=== PATIENT | female | born 1965 | race African-American/Black ===

== ENCOUNTER 2020-05-27 10:38 | Emergency (ER) | payer OTHER ==
[~2020-05-27] VITALS: Ht 172.7 cm; Wt 82.0 kg
[2020-05-27] MEDS ORDERED: ONDANSETRON HCL 4MG/2ML INJ IV STA (10:59)
[2020-05-27] MEDS ORDERED: MORPHINE SULFATE 4 MG/ML CPJ (NOT FOR IM USE) IV STA (10:59)
[2020-05-27] MEDS ORDERED: SODIUM CHLORIDE 0.9% 1,000 ML IV ONE (11:00)
[2020-05-27 11:25] LABS: BASOPHILS % 0.4 % (0.0-2.0); EOSINOPHILS % 0.1 % (0.0-5.0); HEMOGLOBIN. 14.6 g/dL (12.0-16.0); LYMPHOCYTES % 12.2 % (20.0-50.0); MEAN CORPUSCULAR HEMOGLOBIN 29.4 pg (28.0-32.0); MEAN CORPUSCULAR VOLUME 88.8 fL (81.0-99.0); MEAN PLATELET VOLUME 8.7 fl (7.4-10.4); MONOCYTES % 2.1 % (2.0-8.0); NEUTROPHILS % 85.2 % (40.0-76.0); PLATELET 363 x1000/uL (130-400); RED BLOOD CELL COUNT 4.95 mill/uL (4.2-5.4)
[2020-05-27 11:35] LABS: CHLORIDE 104 mEq/L (98-107)
[2020-05-27] MEDS ORDERED: POTASSIUM CHLORIDE 20MEQ TABLET SR PO ONE (11:45)
[2020-05-27] MEDS ORDERED: KETOROLAC 15MG/ML VIAL IV ONE (11:45)
[2020-05-27] MEDS ORDERED: MORPHINE SULFATE 4 MG/ML CPJ (NOT FOR IM USE) IV ONE (12:45)
[2020-05-27] MEDS ORDERED: HALOPERIDOL LACTATE 5MG/ML VIAL IM ONE (13:00)
[2020-05-27 14:18] LABS: CLARITY URINE CLOUDY (CLEAR); COLOR URINE YELLOW (YELLOW); KETONES URINE 1+ (NEGATIVE); LEUKOCYTE ESTERASE URINE TRACE (NEGATIVE); NITRITE URINE NEGATIVE (NEGATIVE); OCCULT BLOOD URINE NEGATIVE (NEGATIVE); PH URINE 8.5 (4.5-8.0); PROTEIN URINE NEGATIVE (NEGATIVE); SPECIFIC GRAVITY URINE 1.017 (1.005-1.030); UROBILINOGEN URINE 0.2 E.U./dL (0.2-1.0)
[2020-05-27 15:07] VITALS: BP 121/72
[2020-05-27 15:26] LABS: *AMPHETAMINES SCREEN URINE NEGATIVE (NEGATIVE)
[2020-05-27 15:27] LABS: *BARBITURATES SCREEN URINE NEGATIVE (NEGATIVE); *BENZODIAZEPINES SCREEN URINE NEGATIVE (NEGATIVE); *COCAINE SCREEN URINE NEGATIVE (NEGATIVE); METHADONE URINE SCREEN NEGATIVE (NEGATIVE); OPIATES URINE SCREEN PRESUMTIVE POSITIVE (NEGATIVE); PHENCYCLIDINE URINE SCREEN NEGATIVE (NEGATIVE)
[2020-05-27 15:28] LABS: CANNABINOID URINE SCREEN PRESUMTIVE POSITIVE (NEGATIVE)
== END 2020-05-27 15:33 | disposition short-term general hospital (02) ==
LOC: ER 10:55 → CANBEDREQ 15:46
DX: K85.90 Acute pancreatitis without necrosis or infection, unspecified (principal); E87.6 Hypokalemia; R94.31 Abnormal electrocardiogram [ECG] [EKG]
CPT/HCPCS: 36415; 76705; 80053; 80305; 81003; 83690; 85025; 93005; 96372; 96374; 96375; 96376; 99285; J1630; J1885; J2270; J2405; J7030

== ENCOUNTER 2021-01-08 17:57 | Emergency (ER) | payer OTHER ==
[~2021-01-08] VITALS: Ht 172.7 cm; Wt 90.0 kg
[2021-01-08] MEDS ORDERED: ONDANSETRON HCL 4MG/2ML INJ IV STA (18:07)
[2021-01-08] MEDS ORDERED: MORPHINE SULFATE 4 MG/ML CPJ (NOT FOR IM USE) IV STA (18:07)
[2021-01-08] MEDS ORDERED: SODIUM CHLORIDE 0.9% 1,000 ML IV ONE (18:15)
[2021-01-08] MEDS ORDERED: LORAZEPAM 2MG/ML CPJ IV ONE (18:15)
[2021-01-08] MEDS ORDERED: HALOPERIDOL LACTATE 5MG/ML VIAL IM ONE (18:30)
[2021-01-08 18:37] LABS: BASOPHILS % 0.2 % (0.0-2.0); EOSINOPHILS % 0.4 % (0.0-5.0); HEMATOCRIT. 39.4 % (36.0-48.0); HEMOGLOBIN. 13.7 g/dL (12.0-16.0); LYMPHOCYTES % 22.9 % (20.0-50.0); MEAN CORPUSCULAR HEMOGLOBIN 29.9 pg (28.0-32.0); MEAN CORPUSCULAR VOLUME 85.8 fL (81.0-99.0); MEAN PLATELET VOLUME 8.5 fl (7.4-10.4); MONOCYTES % 4.6 % (2.0-8.0); NEUTROPHILS % 71.9 % (40.0-76.0); PLATELET 374 x1000/uL (130-400); RED BLOOD CELL COUNT 4.59 mill/uL (4.2-5.4); RED CELL DISTRIBUTION WIDTH 13.9 % (11.6-14.6)
[2021-01-08 18:45] LABS: CHLORIDE 108 mEq/L (98-107)
[2021-01-08 18:47] LABS: INR 1.1; PROTHROMBIN TIME 11.3 sec (9.6-11.0)
[2021-01-08 18:49] LABS: ETHANOL BLOOD < 10 mg/dL
[2021-01-08 18:59] LABS: HCG SCREEN NEGATIVE
[2021-01-08] MEDS ORDERED: SODIUM CHL 0.9% + KCL 20MEQ/L 1,000 ML IV SCH (19:30)
[2021-01-08] MEDS ORDERED: FAMO40TA70 MT (19:57)
[2021-01-08] MEDS ORDERED: TRAM50TA3 MT (19:57)
[2021-01-08] MEDS ORDERED: ONDA4TAB5 MT (19:57)
[2021-01-08] MEDS ORDERED: IOHEXOL-300 100 ML BOTTLE ONE (20:59)
[2021-01-08 21:35] VITALS: BP 166/92
== END 2021-01-08 21:50 | disposition home or self-care (01) ==
LOC: ER 17:57
DX: R10.13 Epigastric pain (principal); F12.90 Cannabis use, unspecified, uncomplicated
CPT/HCPCS: 36415; 74177; 76705; 80053; 80320; 83690; 84703; 85025; 85610; 93005; 96361; 96374; 96375; 99285; J2060; J2270; J2405; J3480; J7030; Q9967; Z7610; G0480